=== PATIENT | male | born 1955 | race Caucasian/White ===

== ENCOUNTER → 2016-09-27 | Outpatient (CLI) | payer MEDICARE, OTHER ==
[2016-09-27 13:18] VITALS: BP 132/85; PULSE 82; RESP 20; TEMP 98.5; BMI 48.7
--- NOTE | 2016-09-27 14:22 | P.HPBAR ---
Bariatric H&P - History & Physicial H&P Date: 09/27/16 History & Physicial: Visit/CC: initial visit Patient initial contact: 09/12/16 Initial weight: 149.685 Initial weight in pounds: 330 Height: 5 ft 9 in Initial BMI: 48.7 Last weight: Current weight: 149.685 kg Current weight in pounds: 330.00 Current BMI: 48.7 [place] body weight (based on NIH guidelines): 72.575 kg Excess body weight loss: 70.0% The patient is a 60 year-old M who presents for Bariatric Assessment. Patient is a 60-year-old diabetic type II male who uses for cecal for his diabetic control. He also has severe reflux requiring multiple medications. He 's had an EGD in the past that revealed Alexander's with low-grade dysplasia. Is significant amount of discomfort and reflux. Approximately in 1991 he had back surgery following which the patient had decreased ambulation and he was bedridden for a very long time. From that point on he had started putting on weight. In spite of multiple efforts with dieting and exercise he was unable to bring the weight down. He used to be a smoker but he has quit smoking. His ambulation is slightly limited due to his back pain and sciatic pain. He also has concurrent renal dysfunction with CKDS 3 which is following up with Dr. Johnson. No history of nausea vomiting no CVA hematochezia hematemesis or melena. He has not lost any weight no jaundice or icterus. He's had an appendectomy in the past. Other surgeries are nonabdominal. His no obvious reported hernias. He does not have swelling of his lower extremities. There is no neurological deficit no history of stroke or TIA in the past. He is alert awake and has currently completed decision that this will help him up in conjunction with PCP education. Review of Systems Constitutional: Reports daytime sleepiness, Reports fatigue, Reports weight gain Eyes: denies blurred vision, denies bulging eye, denies decreased vision Ears: deny: decreased hearing, ear discharge, earache, tinnitus Ears, nose, mouth and throat: Denies headache, Denies sore throat Cardiovascular: Denies chest pain, Denies claudication, Denies edema, Denies shortness of breath Respiratory: Reports dyspnea, Reports sleep apnea, Reports snoring Gastrointestinal: Reports heartburn, Reports indigestion, Denies abdominal pain , Denies diarrhea, Denies hematemesis, Denies hematochezia, Denies nausea, Denies vomiting Genitourinary: Denies as per HPI, Denies decreased libido, Denies difficulties fathering child, Denies discharge, Denies dysuria, Denies erectile dysfunction, Denies flank pain, Denies genital pain, Denies genital sores, Denies hematuria, Denies impotence, Denies incontinence, Denies kidney stones, Denies nocturia, Denies polyuria, Denies testicular lump, Denies testicular pain, Denies urinary frequency, Denies urinary hesitancy, Denies urinary retention Musculoskeletal: Reports low back pain, Reports muscle cramps, Reports muscle weakness, Reports shooting leg pain Integumentary: Denies acne, Denies boils, Denies brittle nails, Denies change in hair/nails, Denies depigmentation, Denies dryness, Denies foot/leg ulcers, Denies growths, Denies pruritus, Denies rash Neurological: Denies numbness, Denies weakness Psychiatric: Denies anxiety, Denies depression Endocrine: Denies fatigue, Denies weight change Hematologic/Lymphatic: Denies as per HPI, Denies easy bleeding, Denies easy bruising, Denies lymphadenopathy, Denies lymphedema, Denies thrombophilia Allergic/Immunologic: Denies as per HPI, Denies allergic rhinitis, Denies anaphylaxis, Denies angioedema, Denies gluten intolerance, Denies persistent infections, Denies seasonal allergies, Denies urticaria, Denies wheezing Past Medical History Past Medical History: Asthma, Diabetes Mellitus, Hyperlipidemia, Hypertension, Myocardial Infarction ([place]) Additional Past Medical History / Comment(s): kidney stones, hyperkalemia Last Myocardial Infarction Date:: 2011 History of Any Multi-Drug Resistant Organisms: None Reported Past Surgical History: Appendectomy, Back Surgery, Heart Catheterization, Orthopedic Surgery Additional Past Surgical History / Comment(s): lung surgery, eyes, oral surgery Past Psychological History: Depression Smoking Status: Former smoker Past Alcohol Use History: None Reported Past Drug Use History: None Reported Surgical - Exam Vital Signs Temp Pulse Resp BP 98.5 F 82 20 132/85 09/27/16 13:08 09/27/16 13:08 09/27/16 13:08 02/21/17 13:08 - General well developed, well nourished, no distress, obese - Eyes PERRL, normal ocular movement, no pale, no icteric, no deviation, no loss of movement absent: ptosis, lesions, erythema, surgical pupil - ENT normal pinna, normal nares, normal mucosa, no hearing loss - Neck no masses, no bruits, trachea midline, no lymphadectomy, no venous distension, no deviated trachea - Respiratory normal expansion, normal respiratory effort, clear to auscultation - Cardiovascular Rhythm: regular - Abdomen Abdomen: soft, non tender, surgical scars, no guarding, no rebound, no distended Hernia: none - Integumentary no rash, no growths - Neurologic no disoriented, no combative - Psychiatric oriented to time, oriented to person, oriented to place, speech is normal, memory intact Bariatric Assessment & Plan (1) Diabetic acidosis, type II Status: Acute (2) Chronic kidney disease (CKD) stage G1/A3, glomerular filtration rate (GFR) equal to or greater than 90 mL/min/1.73 square meter and albuminuria creatinine ratio greater than 300 mg/g Status: Acute (3) Lumbago due to displacement of intervertebral disc Status: Acute (4) Hyperlipidemia Status: Acute (5) Hyperlipidemia associated with type 2 diabetes mellitus Status: Acute (6) Hypertension associated with stage 3 chronic kidney disease due to type 2 diabetes mellitus Status: Acute (7) Morbid (severe) obesity due to excess calories Status: Acute (8) Sleep apnea in adult Status: Acute (9) 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 He is also diabetic and initially did not take care of it well. He also used to be a smoker but has quit smoking many years ago. He is also has concurrent chronic kidney disease and severe back issues after multiple operations. His essential hypertension and hyperlipidemia with stage III kidney disease in association with morbid abreast with the BMI of 48.7 and current weight of 149.68 kg. He also has snoring tiredness and most likely sleep apnea. He was to use CPAP machine but it broke. Having a detailed discussion with the patient seems more likely that the patient will request for and will be comfortable with a Fabrizio-en-Y gastric bypass primarily because of his history of Alexander's, and prime concern for the weight loss is diabetic control. He did improve profile diabetic control with Fabrizio-en-Y gastric bypass as well as for a patient with GERD the patient is leaning towards Fabrizio-en-Y gastric bypass. I did scribe in detail the procedure as well as its different risk profile and possible complications. The patient understands and is willing to proceed Oriented the insurance he does not need a 6 month or 1 year weight loss.. However I do requiring clearances prior to the procedure which include: 1- Sleep study 2- EGD 3- Cardiac clearance 4- Nephrology clearance. 5- 30 lbs weight loss with manager application 7 estimate that we will be able to perform the surgery in December or early January Bariatric Checklist Checklist: Plan: Checklist: EGD: 1. Hiatal hernia: 2. H. Pylori: HgbA1c: Vitamin D: Smoking: Former smoker Primary care physician referral: Dr Kwon Psychiatry clearance: Cardiology clearance: Sleep study: Diet journal: VTE risk score: Caprini Score of 4, Rustam of 4 VTE risk level: slightly higher than average. Rehab needs at discharge: Bariatric MBSAQIP Questions - General Questions Was an incisional hernia noted on exam?: No - Comorbidities Sleep Apnea: Yes GERD requiring medication: Yes Hyperlipidemia: Yes Hypertension: Yes Diabetes: Yes
[2016-09-27 15:13] LABS: CH 27.7; CHCM 32.2; HCT 52.8 % (39.0-53.0); HDW 2.58; HGB 16.6 gm/dL (13.0-17.5); MCH 27.1 pg (25.0-35.0); MCHC 31.5 g/dL (31.0-37.0); MCV 86.2 fL (80.0-100.0); Mean Platelet Volume 7.5; RBC 6.13 m/uL (4.30-5.90); RDW 14.6 % (11.5-15.5); WBC 9.6 k/uL (3.8-10.6)
[2016-09-27 15:59] LABS: ALT 53 U/L (21-72); AST 35 U/L (17-59); Alkaline Phosphatase 135 U/L (38-126); Anion Gap 12 mmol/L; Blood Urea Nitrogen 20 mg/dL (9-20); Calcium 9.7 mg/dL (8.4-10.2); Carbon Dioxide 32 mmol/L (22-30); Chloride 96 mmol/L (98-107); Cholesterol 151 mg/dL (<200); Glucose 127 mg/dL (74-99); HDL Cholesterol 48 mg/dL (40-60); Iron 85 ug/dL (49-181); Non-African American GFR(MDRD) 52 (>60 ml/min/1.73 sqM); Potassium 4.9 mmol/L (3.5-5.1); Sodium 140 mmol/L (137-145); Total Bilirubin 0.7 mg/dL (0.2-1.3); Total Protein 7.3 g/dL (6.3-8.2); Triglycerides 156 mg/dL (<150)
[2016-09-27 16:08] LABS: % Iron Saturation 21.5 % (20-50); Total Iron Binding Capacity 396 ug/dL (261-462)
[2016-09-27 17:04] LABS: Vitamin B12 222 pg/mL (239-931)
[2016-09-27 19:35] LABS: Hemoglobin A1C 7.3 % (4.2-6.1)
[2016-09-29 07:55] LABS: Anabasine Urine <2.0 ng/mL (<2.0)
== END | disposition home or self-care (01) ==
LOC: BARWHC3 12:42
PROVIDERS: ATTEND Surgery
DX: Z01.818 Encounter for other preprocedural examination (principal); E66.01 Morbid (severe) obesity due to excess calories; E55.9 Vitamin D deficiency, unspecified; E11.9 Type 2 diabetes mellitus without complications; I11.9 Hypertensive heart disease without heart failure; G47.30 Sleep apnea, unspecified; Z68.42 Body mass index [BMI] 45.0-49.9, adult
CPT/HCPCS: 80061; 80053; 82607; 82728; 83036; 82746; 83540; 83550; 85027; 82306; 36415; G0480; G0463; 80323; 84425; 99201

== ENCOUNTER → 2016-10-06 | Outpatient (CLI) | payer MEDICARE, OTHER ==
[2016-10-06 13:28] VITALS: BMI 50.1
== END | disposition home or self-care (01) ==
LOC: MNTWWP 12:56
PROVIDERS: ATTEND Surgery
DX: Z71.3 Dietary counseling and surveillance (principal); E66.09 Other obesity due to excess calories; Z68.43 Body mass index [BMI] 50.0-59.9, adult
CPT/HCPCS: 97802

== ENCOUNTER → 2016-10-06 | Outpatient (CLI) | payer MEDICARE, OTHER ==
[2016-10-06 12:54] LABS: Basophils # (A) 0.1 k/uL (0-0.2); Basophils % (A) 1 %; CH 27.6; CHCM 32.3; Eosinophils # (A) 0.3 k/uL (0-0.7); Eosinophils % (A) 3 %; HCT 48.9 % (39.0-53.0); HDW 2.72; HGB 15.4 gm/dL (13.0-17.5); Luc # (Auto) 0.41; Luc % (Auto) 4; Lymphocytes # (A) 2.2 k/uL (1.0-4.8); Lymphocytes % (A) 19 %; MCH 27.1 pg (25.0-35.0); MCHC 31.5 g/dL (31.0-37.0); MCV 85.9 fL (80.0-100.0); Mean Platelet Volume 8.2; Monocytes # (A) 0.8 k/uL (0-1.0); Monocytes % (A) 6 %; Neutrophils # (A) 7.9 k/uL (1.3-7.7); Neutrophils % (A) 68 %; RBC 5.69 m/uL (4.30-5.90); RDW 14.8 % (11.5-15.5); WBC 11.7 k/uL (3.8-10.6); WBC (Perox) 12.08
[2016-10-06 12:55] LABS: Appearance,Urine Clear (Clear); Bilirubin,Urine Negative (Negative); Glucose,Urine (UA) 4+ (Negative); Ketones,Urine Negative (Negative); Leukocyte Esterase,Urine Negative (Negative); Nitrite,Urine Negative (Negative); Protein,Urine Negative (Negative); Specific Gravity,Urine 1.001 (1.001-1.035); UA Billing (MACRO vs. MICRO) CHEM; Urobilinogen,Urine <2.0 mg/dL (<2.0)
[2016-10-06 13:12] LABS: Anion Gap 7 mmol/L; Blood Urea Nitrogen 20 mg/dL (9-20); Calcium 9.3 mg/dL (8.4-10.2); Carbon Dioxide 34 mmol/L (22-30); Chloride 97 mmol/L (98-107); Glucose 122 mg/dL (74-99); Iron 53 ug/dL (49-181); Magnesium 1.8 mg/dL (1.6-2.3); Non-African American GFR(MDRD) >60 (>60 ml/min/1.73 sqM); Phosphorous 3.3 mg/dL (2.5-4.5); Potassium 4.3 mmol/L (3.5-5.1); Sodium 138 mmol/L (137-145); Uric Acid 6.7 mg/dL (3.5-8.5)
[2016-10-06 13:21] LABS: % Iron Saturation 14.2 % (20-50); Total Iron Binding Capacity 372 ug/dL (261-462)
== END | disposition home or self-care (01) ==
LOC: LABWHC1 12:10
PROVIDERS: ATTEND Nurse Practitioner Family
DX: N18.3 Chronic kidney disease, stage 3 (moderate) (principal); N39.0 Urinary tract infection, site not specified; D64.9 Anemia, unspecified; E55.9 Vitamin D deficiency, unspecified; E21.3 Hyperparathyroidism, unspecified; M10.9 Gout, unspecified; R31.9 Hematuria, unspecified
CPT/HCPCS: 36415; 80048; 81003; 82306; 82728; 83540; 83550; 83735; 83970; 84100; 84550; 85025

== ENCOUNTER 2016-10-10 07:27 | Day surgery (SDC) | payer MEDICARE, OTHER ==
[2016-10-05 15:23] VITALS: BMI 48.7
[~2016-10-10 07:27] MED LIST: LACTATED RINGERS 1,000 ML IV SCH; LIDOCAINE 1% 20 ML VIAL (10MG/ML) FOR IV START INTRADERMA PRN
[2016-10-10 08:38] VITALS: RESP 18; TEMP 97.3
[2016-10-10] MEDS ORDERED: LIDOCAINE 1% 20 ML VIAL (10MG/ML) FOR IV START INTRADERMA ONE (08:45)
[2016-10-10 08:50] LABS: Glucose,Whole Blood 154 mg/dL (75-99)
[2016-10-10] MEDS ORDERED: LIDOCAINE 1% INJ 10MG/ML (20 ML MDV) ONE (08:55)
[2016-10-10] MEDS ORDERED: PROPOFOL 10 MG/ML 20 ML VIAL IV ONE (08:55)
--- NOTE | 2016-10-10 09:20 | P.OP ---
Date of Procedure: 10/10/16 Preoperative Diagnosis: Known history of barretts Postoperative Diagnosis: Reflux esophagitis LA Grade C Procedure(s) Performed: EGD with biopsy using cold biopsy forceps Anesthesia: ADRIANNA Surgeon: Mary Cardona Pathology: other Condition: stable Disposition: PACU Indications for Procedure: History of Barretts, Preop for bariatric surgery Operative Findings: Worsening esophagitis Description of Procedure: 1. ESOPHAGOGASTRODUODENOSCOPY 2. BIOPSY USING COLD BIOPSY FORCEPS INDICATION FOR PROCEDURE: 61-year-old female presents with symptoms of gastroesophageal reflux disease. He is undergoing EGD for preop evaluation regarding bariatric surgery 1. Gastroesophageal reflux disease 2. Morbid Obesity 3. Diabetes Mellitus 4- Obstructive sleep apnea 5- Back pain An informed consent was obtained from the patient after explaining the risk, benefits and potential complications. He agreed to proceed . PROCEDURE DETAILS: A timeout was performed to verify the correct patient and correct procedure. Patient was on continuous vitals and pulse ox monitoring throughout the procedure. He was placed in lateral decubitus position and a bite block was inserted. A well-lubricated endoscope was passed orally. The esophagus was intubated without difficulty. The EGD was passed beyond the pylorus into the first and second portion of the duodenum. There seemed to have been Ingestion of maalox witha whitish coat. Biopsies were taken from the duodenum,antrum,body, lower esophagus at 40 cm, and at (GE junction 42 cm) and at using cold biopsy forceps. The scope was retroflexed. Small hiatal was noted which is Hill Jw II. No mass, ulcer or bleeding noted within the gastric lumen. Patient has LA grade 3 reflux esophagitis. The endoscope was gradually withdrawn. Patient tolerated the procedure well and was taken to post anesthesia care unit in stable condition. FINAL DIAGNOSIS: 1. Hill Grade II Hiatal hernia 2. Gastro esophageal reflux disease LA grade 3
[2016-10-10 09:45] VITALS: BP 120/82; PULSE 81
== END 2016-10-10 09:55 | disposition home or self-care (01) ==
LOC: ORWHC2ENDO 07:27
PROVIDERS: ATTEND Surgery
DX: Z01.818 Encounter for other preprocedural examination (principal); K29.50 Unspecified chronic gastritis without bleeding; K22.70 Barrett's esophagus without dysplasia; K21.0 Gastro-esophageal reflux disease with esophagitis; K44.9 Diaphragmatic hernia without obstruction or gangrene; E66.01 Morbid (severe) obesity due to excess calories; Z68.42 Body mass index [BMI] 45.0-49.9, adult; E11.9 Type 2 diabetes mellitus without complications; Z79.4 Long term (current) use of insulin; Z79.84 Long term (current) use of oral hypoglycemic drugs; G47.33 Obstructive sleep apnea (adult) (pediatric); Z99.89 Dependence on other enabling machines and devices; I25.10 Atherosclerotic heart disease of native coronary artery without angina pectoris; I10 Essential (primary) hypertension; E78.5 Hyperlipidemia, unspecified; I25.2 Old myocardial infarction; E07.9 Disorder of thyroid, unspecified; Z79.82 Long term (current) use of aspirin; Z79.899 Other long term (current) drug therapy; Z88.2 Allergy status to sulfonamides
CPT/HCPCS: 88305; 88342; 43239; J2001; J2704

== ENCOUNTER → 2016-11-03 | Outpatient (CLI) | payer MEDICARE, OTHER ==
--- NOTE | 2016-11-03 22:08 | CONS ---
DATE OF CONSULTATION: 11/03/2016 This patient is a 61-year-old gentleman who has been seen in the sleep center for obstructive sleep apnea/hypopnea evaluation. HISTORY OF PRESENT ILLNESS/SLEEP-WAKE EVALUATION: Patient was diagnosed with obstructive sleep apnea more than 5 years ago. At that time he was on treatment with CPAP. The pressure for CPAP was in the range of 18 to 17 cm of water. Patient's machine was broken in May of 2014, and then because of financial issues he was not able to restart his treatment again. At present his sleep schedule is from about 10:30 or 11:00 and he sleeps until 6 or 6:30 in the morning. No problem with falling asleep. No TV in bedroom. During sleep he snores, has episodes of stopped breathing during sleep, wakes up from sleep with a dry mouth and nocturia up to 6 times. He also has heartburn and restless legs. During the day he feels significantly sleepy. He has problem paying attention, falling asleep; he has problems with memory, concentration, depression, claustrophobia, sexual dysfunction. [place] Sleepiness Scale is in an extremely high range at 22. Past medical history is positive for: 1. Asthma. 2. COPD. 3. Hypertension. 4. Diabetes mellitus. 5. Back problems. 6. Acid reflux. 7. Depression. 8. Coronary artery disease with history of ND per changes on EKG. PAST SURGICAL HISTORY: Bilateral surgery for cataracts. MEDICATIONS: 1. Albuterol. 2. ( ) with vitamin D. 3. Aspirin. 4. Atenolol. 5. Atrovent. 6. Clonidine. 7. Cyclobenzaprine. 8. Drisdol. 9. Farxiga. 10. Flonase. 11. Furosemide. 12. Hydralazine. 13. Isosorbide. 14. Lantus. 15. Metformin. 16. Neurontin. 17. Nitroglycerin sublingually on p.r.n. basis. 18. NovoLog. 19. Pravachol. 20. Protonix. 21. Qvar. 22. Singulair. 23. Tamsulosin. 24. Tradjenta. 25. Wellbutrin. 26. Zantac. REVIEW OF SYSTEMS: Multiple awakenings from sleep, significant excessive daytime sleepiness, swelling of legs, back pain. No fevers. No double vision. No recent chest pain. No shortness of breath. No abdominal pain. No bleeding episodes. No blood in urine. No seizure episodes. SOCIAL HISTORY: Positive for smoking for about 30 years, up to 2 packs per day; quit in 2000. Alcohol consumption is occasional. FAMILY HISTORY: Hypertension, heart problems, hyperlipidemia, stroke, arthritis, asthma, sinus headaches, sleep apnea, bronchitis, lung problems, pneumonia, headaches, cancer, acid reflux, ulcers, diabetes, restless legs. PHYSICAL EXAMINATION: GENERAL: A pleasant 61-year-old gentleman without distress. VITAL SIGNS: BP 109/75, HR 78, RR 16. Height 5 feet 8 inches. Weight 339. BMI 51.5. Neck 21-1/2 inches in circumference. Temperature 98.5. Oxygen saturation at room air 92%. HEENT: PERRLA, EOMI. Evaluation of oropharynx showed tongue protrudes midline; extremely low position of soft palate. NECK: Supple. No JVD. Thyroid is not palpable. LUNGS: Clear to percussion and to auscultation. Good air exchange. No wheezing or rhonchi. HEART: S1, S2 regular. No murmurs, gallops or rubs. ABDOMEN: Obese. EXTREMITIES: One to two plus bilateral ankle edema. 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 Cranial nerves 2 to 7 intact. There is no fasciculation or atrophy noted. No focal deficits observed. IMPRESSION: 1. Snoring, witnessed episodes of stopped breathing during sleep, extremely low position of soft palate, multiple awakenings from sleep, significant excessive daytime sleepiness, [place] Sleepiness Scale of 22, big neck, obesity, history of obstructive sleep apnea-hypopnea syndrome; obstructive sleep apnea-hypopnea syndrome, probably in severe range. 2. Obesity; body mass index 51.5. 3. Hypertension. 4. History of possible heart attack by results of changes on EKG. 5. Chronic obstructive pulmonary disease and asthma. 6. Diabetes mellitus. 7. Back pain. 8. Acid reflux. 9. Depression. 10. Status post bilateral cataract surgery. PLAN: 1. Polysomnography for evaluation of patient's breathing during sleep. 2. CPAP/BiPAP titration if sleep study confirms obstructive sleep apnea-hypopnea syndrome. 3. Preferable position during sleep on the side. 4. No driving if patient feels any sleepiness. Patient is aware of civil and criminal liability for unsafe driving. 5. I will see patient for follow-up visit to explain results of the testing and following plan. Thank you very much for referring this patient for consultation. Sincerely, Preston Walton MD, PhD, FAASM. Diplomat of [place] [employer], Sleep Medicine Board by [place] [employer] [place] [employer] Trading Assistant [facility] [place]
== END | disposition home or self-care (01) ==
LOC: SLEEP 13:55
PROVIDERS: ATTEND Surgery
DX: R06.83 Snoring (principal); I10 Essential (primary) hypertension; J44.9 Chronic obstructive pulmonary disease, unspecified; J45.909 Unspecified asthma, uncomplicated; E11.9 Type 2 diabetes mellitus without complications; K21.9 Gastro-esophageal reflux disease without esophagitis; F32.9 Major depressive disorder, single episode, unspecified; I25.10 Atherosclerotic heart disease of native coronary artery without angina pectoris; E66.9 Obesity, unspecified; Z68.43 Body mass index [BMI] 50.0-59.9, adult; Z87.891 Personal history of nicotine dependence; Z79.899 Other long term (current) drug therapy; Z79.82 Long term (current) use of aspirin; Z79.4 Long term (current) use of insulin
CPT/HCPCS: 99211

== ENCOUNTER → 2016-12-03 | Outpatient (CLI) | payer MEDICARE, OTHER ==
--- NOTE | 2016-12-05 18:40 | PE ---
EXAMINATION TYPE: PET CT fusion skull to thigh DATE OF EXAM: 12/03/2016 2:37 PM CLINICAL HISTORY: 61-year-old male initial staging for esophageal cancer. Patient reports biopsy on and surgery on 11/09/2016. TECHNIQUE: Following the intravenous administration of 15.13 mCi of F-18 FDG, whole body images are performed from the skull base to the midthigh. Images are reviewed on the computer in the coronal, axial, and sagittal planes. Reconstructed rotating images are created on independent workstation and reviewed on the computer. A localization and attenuation correction CT is performed in conjunction with the PET scan. Glucose level: 84 mg/dL COMPARISON: None. FINDINGS: PET: Physiologic FDG uptake within the neck aside from some degenerative uptake within the cervical spine. No cervical lymphadenopathy seen. Variable moderate to intense colonic activity suggests physiologic uptake. Otherwise, physiologic FDG uptake within the chest, abdomen, and pelvis. ATTENUATION CORRECTION CT: Undulating nasal septum with a polyp or mucosal retention cyst along the floor of the right maxillary sinus. Mastoid air cells are well pneumatized. Extensive degradation of the images on the attenuation correction CT due to patient's very large body habitus with severe streak and beam hardening artifacts. The heart is mildly enlarged with coronary vessel calcifications which are a marker for coronary dise ase. No evident thoracic lymphadenopathy. Suggestion of some pleural parenchymal scarring at the post erior right base. Strandy areas of atelectasis are present. Suggestion of a tiny hiatal hernia. Focal calcification measuring 1.7 cm in the left hepatic lobe co uld be postinflammatory or posttraumatic. Assessment of the abdomen is severely degraded. Bladder no t distended. Bones: Degenerative changes at the hips, SI joints, and throughout the lumbar spine with laminectomy changes in the lower lumbar spine. No osseous destructive process is seen. IMPRESSION: The CT portion of the exam is markedly degraded due to very large body habitus and extensive artifact s. There is no metabolic evidence for metastatic disease. Also, no focal hypermetabolism is identifie d to localize the patient's site of primary disease.
== END | disposition home or self-care (01) ==
LOC: RADPETMAIN 12:00
PROVIDERS: ATTEND Internal Medicine
DX: C15.9 Malignant neoplasm of esophagus, unspecified (principal)
CPT/HCPCS: 78815; A9552

== ENCOUNTER → 2016-12-29 | Outpatient (CLI) | payer MEDICARE, OTHER ==
--- NOTE | 2016-12-29 21:38 | PN ---
DATE OF SERVICE: 12/29/2016 A 61-year-old year-old gentleman who has been followed in the sleep center for treatment of extremely severe obstructive sleep apnea-hypopnea syndrome. I discussed results of diagnostic sleep study and BiPAP titration with the patient and presently he is on treatment with BiPAP. I checked his BiPAP unit. He brought it with him. BiPAP at the pressure 23/19 and patient feels okay with that pressure, does not feel that pressure is too much for him. He is starting to treatment with a pressure of 10, ramp of 15 minutes. Patient demonstrated 100% of usage of equipment, 30 out of 30 nights; usage 28 out of 30 for more than 4 hours. Apnea-hypopnea index reading from the machine only 1.4, which is perfect. Machine indicates leak from the mask 73 L per minute. Patient using nasal pillows. I believe he opens his mouth during sleep and sometimes he feels that his mouth is dry. [place] Sleepiness Scale today is 10. MEDICATIONS: 1. Albuterol. 2. Aspirin. 3. Atenolol. 4. Atrovent. 5. Clonidine. 6. Cyclobenzaprine. 7. ( ). 8. Flonase. 9. Furosemide. 10. Hydralazine. 11. Isosorbide. 12. Lantus. 13. Metformin. 14. Neurontin. 15. Nitroglycerin. 16. NovoLog. 17. Pravachol. 18. Protonix 19. Qvar. 20. Singulair. 21. Tamsulosin. 22. Tradjenta. 23. Wellbutrin. 24. Zantac. PHYSICAL EXAMINATION: GENERAL: A patient in no distress. VITAL SIGNS: BP 151/76, HR 74, RR 16. Weight 331. Temp 98.6, oxygen saturation at room air 98%. HEENT: PERRLA, EOMI. Evaluation of oropharynx showed tongue protrudes midline, extremely low position of soft palate. Neck: Supple. No JVD. Thyroid is not palpable. LUNGS: Clear to percussion and to auscultation. Good air exchange. No wheezing or rhonchi. HEART: S1, S2 regular. No murmurs, gallops, or rubs. ABDOMEN: Obese, soft and nontender. Bowel sounds are present. No organomegaly appreciated. EXTREMITIES: No clubbing or cyanosis. 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 Cranial nerves 2 to 7 intact. There is no fasciculation or atrophy noted. No focal deficits observed. IMPRESSION: 1. Extremely severe obstructive sleep apnea-hypopnea syndrome. Apnea-hypopnea index 92.2 with oxygen desaturation to extremely low at 64.9% on control with bi-level positive airway pressure with a pressure 23/19 cm of water. Patient demonstrated great compliance with treatment, benefiting from treatment. 2. Quite significant leak with nasal pillow mask most probably related to opening the mouth. 3. Obesity. 4. Hypertension. 5. History of possible heart attack. 6. History of chronic obstructive pulmonary disease and asthma. 7. Diabetes mellitus. 8. Back pain. 9. Acid reflux. 10. Depression. 11. Status post bilateral cataract surgery. 12. History of esophageal cancer, status post recent surgical treatment. PLAN: 1. Continue treatment with BiPAP every night for the whole night. 2. Losing weight. 3. Sleep hygiene with regular time in bed for at least 8 hours. 4. No driving if feeling any sleepiness. The patient should use chin strap every night. He has been receiving chin strap. 5. No driving if feeling any sleepiness. Thank you very much for allowing me to participate in the management of your patient. Sincerely, Preston Walton MD, PhD, FAASM. Diplomat of [place] [employer], Sleep Medicine Board by [employer] [place] [employer] Plate Worker [facility] [place]
== END | disposition home or self-care (01) ==
LOC: SLEEP 15:42
PROVIDERS: ATTEND Internal Medicine
DX: G47.33 Obstructive sleep apnea (adult) (pediatric) (principal); E66.9 Obesity, unspecified; I10 Essential (primary) hypertension; J44.9 Chronic obstructive pulmonary disease, unspecified; J45.909 Unspecified asthma, uncomplicated; E11.9 Type 2 diabetes mellitus without complications; M54.9 Dorsalgia, unspecified; K21.9 Gastro-esophageal reflux disease without esophagitis; F32.9 Major depressive disorder, single episode, unspecified; Z79.899 Other long term (current) drug therapy

== ENCOUNTER → 2017-01-26 | Outpatient (CLI) | payer MEDICARE, OTHER ==
[2017-01-26 10:33] LABS: Basophils # (A) 0.1 k/uL (0-0.2); Basophils % (A) 1 %; CH 28.6; CHCM 31.7; Eosinophils # (A) 0.3 k/uL (0-0.7); Eosinophils % (A) 3 %; HCT 48.9 % (39.0-53.0); HDW 2.41; HGB 14.8 gm/dL (13.0-17.5); Luc # (Auto) 0.23; Luc % (Auto) 2; Lymphocytes # (A) 2.1 k/uL (1.0-4.8); Lymphocytes % (A) 18 %; MCH 27.4 pg (25.0-35.0); MCHC 30.2 g/dL (31.0-37.0); MCV 90.7 fL (80.0-100.0); Monocytes # (A) 0.7 k/uL (0-1.0); Monocytes % (A) 6 %; Neutrophils # (A) 8.3 k/uL (1.3-7.7); Neutrophils % (A) 70 %; RBC 5.39 m/uL (4.30-5.90); RDW 15.4 % (11.5-15.5); WBC 11.7 k/uL (3.8-10.6)
[2017-01-26 10:37] LABS: Appearance,Urine Cloudy (Clear); Bilirubin,Urine Negative (Negative); Glucose,Urine (UA) 3+ (Negative); Ketones,Urine Negative (Negative); Leukocyte Esterase,Urine Negative (Negative); Mucus,Urine Rare /hpf; Nitrite,Urine Negative (Negative); Particle Count 478; Protein,Urine Negative (Negative); Specific Gravity,Urine 1.005 (1.001-1.035); UA Billing (MACRO vs. MICRO) MICRO; Urobilinogen,Urine <2.0 mg/dL (<2.0); WBC,Urine <1 /hpf (0-5)
[2017-01-26 10:50] LABS: Anion Gap 11 mmol/L; Blood Urea Nitrogen 25 mg/dL (9-20); Calcium 9.4 mg/dL (8.4-10.2); Carbon Dioxide 32 mmol/L (22-30); Chloride 101 mmol/L (98-107); Glucose 83 mg/dL (74-99); Iron 42 ug/dL (49-181); Magnesium 1.8 mg/dL (1.6-2.3); Non-African American GFR(MDRD) 52 (>60 ml/min/1.73 sqM); Phosphorous 3.4 mg/dL (2.5-4.5); Potassium 4.5 mmol/L (3.5-5.1); Sodium 144 mmol/L (137-145); Uric Acid 7.3 mg/dL (3.5-8.5)
[2017-01-26 10:59] LABS: % Iron Saturation 11.9 % (20-50); Total Iron Binding Capacity 352 ug/dL (261-462)
== END ==
LOC: LABWHC1 09:37
PROVIDERS: ATTEND Nurse Practitioner Family
DX: N18.3 Chronic kidney disease, stage 3 (moderate) (principal); D64.9 Anemia, unspecified; E55.9 Vitamin D deficiency, unspecified; E21.3 Hyperparathyroidism, unspecified; M10.9 Gout, unspecified; N39.0 Urinary tract infection, site not specified
CPT/HCPCS: 36415; 80048; 81001; 82306; 82728; 83540; 83550; 83735; 83970; 84100; 84550; 85025

== ENCOUNTER → 2017-08-21 | Outpatient (CLI) | payer MEDICARE, OTHER ==
[2017-08-21 12:52] LABS: Basophils # (A) 0.1 k/uL (0-0.2); Basophils % (A) 1 %; Eosinophils # (A) 0.4 k/uL (0-0.7); Eosinophils % (A) 3 %; HGB 17.5 gm/dL (13.0-17.5); Lymphocytes # (A) 2.2 k/uL (1.0-4.8); Lymphocytes % (A) 14 %; MCH 28.5 pg (25.0-35.0); MCHC 31.8 g/dL (31.0-37.0); MCV 89.4 fL (80.0-100.0); Mean Platelet Volume 7.7; Monocytes # (A) 0.7 k/uL (0-1.0); Monocytes % (A) 4 %; Neutrophils # (A) 11.4 k/uL (1.3-7.7); Neutrophils % (A) 76 %; Platelet Count 255 k/uL (150-450); RBC 6.15 m/uL (4.30-5.90); RDW 14.1 % (11.5-15.5); WBC 15.1 k/uL (3.8-10.6)
[2017-08-21 12:55] LABS: Appearance,Urine Clear (Clear); Bilirubin,Urine Negative (Negative); Blood,Urine Negative (Negative); Color,Urine Light Yellow; Glucose,Urine (UA) 4+ (Negative); Ketones,Urine Negative (Negative); Leukocyte Esterase,Urine Negative (Negative); Nitrite,Urine Negative (Negative); Protein,Urine Negative (Negative); Specific Gravity,Urine 1.008 (1.001-1.035); Urobilinogen,Urine <2.0 mg/dL (<2.0)
[2017-08-21 13:08] LABS: Anion Gap 10 mmol/L; Blood Urea Nitrogen 21 mg/dL (9-20); Calcium 10.1 mg/dL (8.4-10.2); Carbon Dioxide 31 mmol/L (22-30); Chloride 99 mmol/L (98-107); Cholesterol 166 mg/dL (<200); Glucose 124 mg/dL (74-99); HDL Cholesterol 45 mg/dL (40-60); LDL Cholesterol,Calculated 87 mg/dL (0-99); Magnesium 1.9 mg/dL (1.6-2.3); Phosphorus 3.4 mg/dL (2.5-4.5); Potassium 5.1 mmol/L (3.5-5.1); Sodium 140 mmol/L (137-145); Triglycerides 172 mg/dL (<150)
[2017-08-21 19:39] LABS: Iron Saturation 18.86 (15.00-50.00)
[2017-08-21 19:47] LABS: Vitamin D 25 Hydroxy 18.1 ng/mL (30.0-100.0)
[2017-08-21 21:26] LABS: Hemoglobin A1C 6.4 % (4.0-6.0)
== END | disposition home or self-care (01) ==
LOC: LABWHC1 12:00
PROVIDERS: ATTEND Internal Medicine Nephrology
DX: M10.9 Gout, unspecified (principal); R80.9 Proteinuria, unspecified; E55.9 Vitamin D deficiency, unspecified; D50.9 Iron deficiency anemia, unspecified; N18.3 Chronic kidney disease, stage 3 (moderate); D63.1 Anemia in chronic kidney disease; E11.65 Type 2 diabetes mellitus with hyperglycemia; E78.00 Pure hypercholesterolemia, unspecified; E11.22 Type 2 diabetes mellitus with diabetic chronic kidney disease
CPT/HCPCS: 36415; 80048; 80061; 81003; 82306; 82728; 83036; 83540; 83550; 83735; 83970; 84100; 84550; 85025

== ENCOUNTER → 2017-11-17 | Outpatient (CLI) | payer MEDICARE, OTHER ==
--- NOTE | 2017-11-17 12:46 | CTL ---
EXAMINATION TYPE: CT Low Dose Lung DATE OF EXAM ORDERED: 11/17/2017 HISTORY: . Lung cancer screening CT DLP: 155.[address] CTDI: 4.3 mGy Automated exposure control for dose reduction was used. SCREENING VISIT: Initial COMPARISON: PET CT 12/03/2016 TECHNIQUE: Low dose computed tomography scan was performed through the chest at 1 mm thick sections a nd reconstructed images in the coronal plane at [address] DIAGNOSTIC QUALITY: Satisfactory FINDINGS: LUNG NODULES: None. LUNGS: COPD: Severity: Mild Fibrosis: Severity: None Lymph nodes: No enlarged Other findings: None RIGHT PLEURAL SPACE: Effusion: None Calcification: None Thickening: None Pneumothorax: None LEFT PLEURAL SPACE: Effusion: None Calcification: None Thickening: None Pneumothorax: None HEART: Heart Size: Normal Coronary calcification: Mild Pericardial effusion: None OTHER FINDINGS: Upper abdomen: Normal Bony thorax: Normal Supraclavicular region: Normal Other: Ascending thoracic aorta at the level of the main pulmonary artery is 4.1 cm. Main pulmonary b ifurcation is 3.6 cm. IMPRESSION: 1. No suspicious lung lesions. 2. Ascending thoracic aortic aneurysm of 4.[address] CHEST RECOMMENDATION: Low dose screening per protocol CT LUNG RAD: Lung-Rad 1 Negative
== END | disposition home or self-care (01) ==
LOC: RADCTMAIN 11:17
PROVIDERS: ATTEND Internal Medicine
DX: Z12.2 Encounter for screening for malignant neoplasm of respiratory organs (principal); I71.2 Thoracic aortic aneurysm, without rupture

== ENCOUNTER → 2018-01-04 | Outpatient (CLI) | payer MEDICARE, OTHER ==
--- NOTE | 2018-01-04 15:02 | SFUN ---
SLEEP CENTER FOLLOW UP NOTE DATE OF SERVICE: 01/04/2018 A 62-year-old gentleman who has been followed in Sleep Center for treatment of obstructive sleep apnea-hypopnea syndrome. Patient has successfully continued to use his BiPAP equipment every night for the whole night without significant problems, except he feels that his mouth is dry in the morning. I checked his BiPAP unit. BiPAP pressure is 23/19 cm of water. Usage is 100% of the time more than 4 hours. Average usage is 7.3 hours. Leak is up to 68 L/minutes which is high and apnea-hypopnea index is only 0.9, which is perfect. The patient is using nasal pillow mask. Subsequently, most probably leak related to opening his mouth and the presence of dryness in the mouth in the morning also confirms that. In October of this year patient had a parathyroidectomy for hyperparathyroidism. He also was found to have aortic aneurysm in the chest area about 4 cm. MEDICATIONS: Albuterol, aspirin, atenolol, Ultram, clonidine, cyclobenzaprine, Flonase, furosemide, hydralazine, isosorbide, Lantus, metformin, Neurontin, nitroglycerin, NovoLog, Pravachol, Protonix, QR, Singulair, Tradjenta, Wellbutrin, Zantac, Citrol. PHYSICAL EXAM: Patient in no distress. BP 126/69, HR 85, RR 18, height 5, 8, weight 314.6, which is about 16 pounds less than last year. Temp 98.4. Oxygen saturation of 93%. OROPHARYNX: Low position of soft palate. Horizontal scar in the middle of the neck after recent parathyroidectomy. ABDOMEN: Obese. Neck Supple, no JVD. Thyroid is not palpable. LUNGS Clear to percussion and to auscultation. Good air exchange. No wheezing or rhonchi. HEART S1, S2 regular. No murmurs, gallops, or rubs. EXTREMITIES No clubbing or cyanosis. TICK SEWER Awake, alert, and oriented X3. Cranial nerves 2 to 7 intact. There is no fasciculation or atrophy. noted. No focal deficits observed. IMPRESSION: 1. Obstructive sleep apnea-hypopnea syndrome in extremely severe range with apnea- hypopnea index 92.2 with oxygen desaturation to 64.9% on control with BiPAP at 23/19 cm of water. Patient demonstrated 100% compliance with treatment benefitting from treatment. 2. Obesity patient lost several pounds since last visit. 3. Status post parathyroidectomy for hyperparathyroidism, surgery done in October 2017. 4. Aortic aneurysm about 4 cm in the chest area found this year. 5. Hypertension. 6. History of possible heart attack. 7. History of chronic obstructive pulmonary disease and asthma. 8. Diabetes mellitus. 9. Back pain. 10.Acid reflux. 11.Depression. 12.Status post bilateral cataract surgery. 13.History of esophageal cancer, status post surgical treatment. PLAN: 1. Patient will continue to use his BiPAP equipment every night for the whole night. 2. Prescription for the chin strap to prevent opening mouth during the sleep. 3. Continue losing weight. 4. Sleep hygiene with regular time in bed for at least 8 hours. 5. Prescription for all necessary CPAP supplies including mask, tube, filters. 6. Followup visit in 1 year or earlier if patient has any problems. Thank you very much for allowing me to participate in the management of your patient. Sincerely, Preston Walton MD, PhD, FAASM Diplomat of [employer] [facility] [place] MMODL / IJN: [id number] /
== END | disposition home or self-care (01) ==
LOC: SLEEP 13:14
PROVIDERS: ATTEND Internal Medicine
DX: G47.33 Obstructive sleep apnea (adult) (pediatric) (principal); E66.9 Obesity, unspecified; I10 Essential (primary) hypertension; E11.9 Type 2 diabetes mellitus without complications; K21.9 Gastro-esophageal reflux disease without esophagitis; F32.9 Major depressive disorder, single episode, unspecified; Z90.89 Acquired absence of other organs; I71.9 Aortic aneurysm of unspecified site, without rupture; Z87.09 Personal history of other diseases of the respiratory system; Z85.01 Personal history of malignant neoplasm of esophagus; Z79.899 Other long term (current) drug therapy; Z79.82 Long term (current) use of aspirin; Z79.4 Long term (current) use of insulin; Z79.84 Long term (current) use of oral hypoglycemic drugs

== ENCOUNTER → 2018-08-22 | Outpatient (CLI) | payer MEDICARE, OTHER ==
--- NOTE | 2018-08-22 14:04 | XR ---
EXAMINATION TYPE: XR cervical spine comp DATE OF EXAM: 08/22/2018 COMPARISON: None HISTORY: Neck pain following fall down stairs TECHNIQUE: Five-view cervical spine FINDINGS: There is a surgical clip in the base of the right neck. Foramen have mild narrowing on the right at C3-4. Remaining foramen are patent bilaterally. Prevertebral space is normal. Some spondylos is is present. Exam is supplemented with a transthoracic swimmer's view. Vertebral body alignment is preserved. Vertebral body heights are preserved. Disc heights appear preserved. Odontoid is nondiagno stic with overlying occiput. IMPRESSION: 1. No suspicious acute changes cervical spine 2. Very mild degenerative changes
== END | disposition home or self-care (01) ==
LOC: RADXRYALE 13:35
PROVIDERS: ATTEND Internal Medicine
DX: M47.812 Spondylosis without myelopathy or radiculopathy, cervical region (principal)
CPT/HCPCS: 72050

== ENCOUNTER → 2018-12-10 | Outpatient (CLI) | payer MEDICARE, OTHER ==
--- NOTE | 2018-12-10 15:06 | CT ---
EXAMINATION TYPE: CT chest w con DATE OF EXAM: 12/10/2018 COMPARISON: PET CT December 03, 2016. CT low dose lung November 17, 2017 HISTORY: Thoracic aortic aneurysm CT DLP: 1284.8 mGycm. Automated Exposure Control for Dose Reduction was Utilized. TECHNIQUE: CT scan of the thorax is performed following with IV Contrast, patient injected with 80 m L of Isovue 300. FINDINGS: LUNGS: Elevated right hemidiaphragm is redemonstrated. Some blebs in the medial right lung apex are a gain seen. Few small thin-walled cysts in the left lower lobe are present. No suspicious nodules or m asses. No pleural effusion or pneumothorax. MEDIASTINUM: There are no greater than 1 cm hilar or mediastinal lymph nodes. No pericardial effusi on is seen. Cardiomegaly is present. Coronary artery calcification is seen which is noted marked und erlying coronary artery disease. Main pulmonary artery measures 3.0 cm at bifurcation image 25. Adjac ent ascending aorta measures up to 3.8 cm in diameter. OTHER: Dystrophic calcifications left hepatic lobe are noted.. IMPRESSION: Ascending aorta measures up to 3.8 cm diameter on current study. No significant change ac counting for technical differences.
== END | disposition home or self-care (01) ==
LOC: RADCTMAIN 12:51
PROVIDERS: ATTEND Internal Medicine
DX: I71.2 Thoracic aortic aneurysm, without rupture (principal)
CPT/HCPCS: 82565; 84520; 71260; 36415; Q9967

== ENCOUNTER → 2018-12-13 | Outpatient (CLI) | payer MEDICARE, OTHER ==
--- NOTE | 2018-12-13 12:54 | SFUN ---
SLEEP CENTER FOLLOW UP NOTE DATE OF SERVICE: 12/13/2018 This 63-year-old gentleman had been followed in sleep center for treatment of obstructive sleep apnea-hypopnea syndrome. Patient successfully continuing to use his CPAP equipment every night for the whole night without significant problems related to mask fitting, pressure or humidification. [place] Sleepiness Scale today is 3. I checked patient's BiPAP unit. BiPAP pressure 23/19. Usage is 100% of the time more than 4 hours. Average usage is 7.8 hours. Leak is 36 L/minutes which is borderline. Apnea-hypopnea index only 0.9, which is perfect. MEDICATIONS: Albuterol, aspirin, atenolol, clonidine, cyclobenzaprine, Flonase, furosemide, hydralazine, isosorbide, Lantus, metformin, Neurontin, NovoLog, nitroglycerin on p.r.n. basis, Pravachol, Protonix, , Singulair, Tradjenta, Wellbutrin, Zantac, . PHYSICAL EXAMINATION: During physical exam, patient in no distress. VITAL SIGNS: BP 134/77, HR 72, RR 16, height 5 feet 8 inches, weight 315 pounds which is about the same as last year, body mass index 47.8, temperature 97.9, oxygen saturation in room air 95%. HEENT: PERRLA, EOMI. Oropharynx low position of soft palate. Mallampati 4. NECK: Supple, no JVD. Thyroid is not palpable. LUNGS: Clear to percussion and to auscultation. Good air exchange. No wheezing or rhonchi. HEART: S1, S2 regular. No murmurs, gallops, or rubs. ABDOMEN: Obese. EXTREMITIES: No clubbing or cyanosis. EMR IMPLEMENTATION SPECIALIST: Awake, alert, and oriented X3. Cranial nerves 2 to 7 intact. There is no fasciculation or atrophy. noted. No focal deficits observed. IMPRESSION: 1. Obstructive sleep apnea-hypopnea syndrome. Patient demonstrated 100% compliance with BiPAP treatment, benefitting from treatment. Apnea-hypopnea index by results of sleep study in the past is extremely high 92.2 with oxygen desaturation to 64.9%. 2. Obesity. 3. Status post parathyroidectomy for hyperparathyroidism in October 2017. 4. Aortic aneurysm, about 4 cm on followup. 5. Hypertension. 6. History of possible heart attack. 7. History of chronic obstructive pulmonary disease and asthma. 8. Diabetes mellitus. 9. Back pain. 10.Depression. 11.Acid reflux. 12.Status post bilateral cataract surgery. 13.History of esophageal cancer, status post surgical treatment. PLAN: 1. Patient will continue to use BiPAP equipment every night for the whole night. 2. Losing weight. 3. Sleep hygiene with regular time in bed for at least 8 hours. 4. No driving if feeling any sleepiness. 5. Prescription for all necessary BiPAP supplies including mask, tube, filters. Thank you very much for allowing me to participate in management of your patient. Sincerely, Preston Walton MD, PhD, FAASM Diplomat of [employer] [facility] [place] MMODL / CRUZITON: [id number] /
== END | disposition home or self-care (01) ==
LOC: SLEEP 11:20
PROVIDERS: ATTEND Internal Medicine
DX: G47.33 Obstructive sleep apnea (adult) (pediatric) (principal); E66.9 Obesity, unspecified; I71.9 Aortic aneurysm of unspecified site, without rupture; I10 Essential (primary) hypertension; E11.9 Type 2 diabetes mellitus without complications; M54.9 Dorsalgia, unspecified; F32.9 Major depressive disorder, single episode, unspecified; K21.9 Gastro-esophageal reflux disease without esophagitis; Z68.42 Body mass index [BMI] 45.0-49.9, adult; Z85.01 Personal history of malignant neoplasm of esophagus; Z87.09 Personal history of other diseases of the respiratory system; Z99.89 Dependence on other enabling machines and devices; Z98.41 Cataract extraction status, right eye; Z98.42 Cataract extraction status, left eye; Z90.09 Acquired absence of other part of head and neck; Z98.890 Other specified postprocedural states; Z79.4 Long term (current) use of insulin; Z79.82 Long term (current) use of aspirin; Z79.899 Other long term (current) drug therapy

== ENCOUNTER → 2019-10-09 | Outpatient (CLI) | payer MEDICARE, OTHER | END | disposition home or self-care (01) | LOC: LABWHC1 11:41 | PROVIDERS: ATTEND Internal Medicine | DX: E11.42 Type 2 diabetes mellitus with diabetic polyneuropathy (principal); K31.84 Gastroparesis; Z79.4 Long term (current) use of insulin | CPT/HCPCS: 36415; 82947; 84681 ==